=== PATIENT | male | born 1980 | race Caucasian/White ===

== ENCOUNTER 2024-06-26 13:26 | Outpatient (AMB) | payer OTHER, SELFPAY ==
--- NOTE | 2024-06-26 13:38 | A.OFFPC_ITS ---
Vital Signs 06/26/24 13:45 Height 6 ft 1 in Weight 132 lb 6 oz BMI 17.5 BP 121/64 Blood Pressure Location Rt brachial Position Sitting Respiration 16 Pulse 70 Pulse Source Pulse Oximeter Temp 98.2 F Temp Source Oral Pulse Oximetry (%) 99 Oxygen Delivery Method Room Air Intake Visit Reasons: est care Intake Note: patient here for new patient visit Vice President Biostatistics Required: No Allergies No Known Allergies [No Known Allergies*] Allergy (Verified 06/26/24 13:41) Tobacco use date assessed: 06/26/24 Dental Screening Dental Screen Date: 06/26/24 Did you have a dental visit in the last 12 months?: No Did you have a dental problem in the last 6 months where you did not have access to dental care?: No Was dental information given to patient?: Patient has dentist HPI HPI Comments History of Present Illness Details 43-year-old male presents to establish c are. Prior PCP? - [facility] Last office visit/CPE/labs - About 5 years Acute issue(s) - Trouble maintaining sleep. Ongoing on and off x 10 years. Sleep 1-3 hours nightly. - He notes chronic skin sensitivity with intermittent itching to his right arm, back, abdomen, and lower extremities. - Intermittent lower back tightness and discomfort which may interferes with his sleep and attributes that to scoliosis - intermittent anxiety and depressive sy mptoms. He was on psychotropic medications until 3-4 years ago. Never been followed by a psychiatrist. No history of psychotherapy. Declines psychotherapy at this time. Past Medical History - Anxiety, depression, scoliosis Surgical History - None Family History - None Social History - Nonsmoker. Vape cannabis occasionally. Does not drink alcohol. Smokes cannabis daily. - Has been making healthy dietary choice s. Does not exercise. Has trouble staying asleep, ongoing on and off for the past 10 years; he sleeps an average of 1-3 hours nightly. Drinks an average of 1 coffee daily. Health maintenance - Last eye exam was about 4-5 years ago. Referred to Ophthalmology. - Last dental visit was over in the the late to early 1999; encouraged to schedule an appointment with his dentist for routine dental care. - Unsure of last tetanus vaccine but wit hin 10 years. Will review records and update as needed. - Has not been vaccinated for the flu ; flu vaccine administered during his visit. [facility] Medical History (Updated 06/26/24 @ 14:25 by Matt Choudhury CNP) Scoliosis Depression Anxiety Family History (Updated 06/26/24 @ 13:44 by Roro Mckeon) Father Alcohol abuse Paternal Grandfather Alcohol abuse Maternal Grandfather Alcohol abuse Social History (Updated 06/26/24 @ 13:49 by Roro Mckeon) Housing: House Patient Tobacco Use Status: Never used Tobacco e-Cigarette/Vaping Use: Currently Using Second Hand Smoke Exposure: No Substance Use Type: Marijuana service: No Current occupational status: unemployed Current occupational exposures/hazards: No Cognitive needs: No Hearing needs: No Vision needs: No Questionnaire PHQ-9 Over the last 2 weeks, how often have you been bothered by any of the following problems? 1. Little interest or pleasure in doing things: several days 2. Feeling down, depressed, or hopeless: several days 3. Trouble falling or staying asleep, or sleeping too much: nearly every day 4. Feeling tired or having little energy: several days 5. Poor appetite or overeating: several days 6. Feeling bad about yourself - or that you are a failure or have let yourself or your family down: several days 7. Trouble concentrating on things, such as reading the newspaper or watching television: not at all 8. Moving or speaking so slowly that other people could have noticed. Or the opposite - being so fidgety or restless that you have been moving around a lot more than usual: not at all 9. Thoughts that you would be better off or of hurting yourself in some way: not at all Total score: 8 Depression Screening Interpretation: Positive Depression Screening Follow-up: Existing condition Depression Screening Done: Yes 92925 - PHQ-9 Billing: Yes Source: Developed by Drs. Aleksey Eugene, Dinorah Valenzuela, Raymundo Antony and colleagues, with an educational denisa from [employer]. Thrive Questionnaire Date Thrive assessed: 06/26/24 I am a: Patient What is your living situation today?: I have a steady place to live Within the past 12 months, did the food you bought not last and you didn't have the money to get more?: Never true Within the past 12 months, did you worry whether your food would run out before you got money to buy more?: Never true Do you have trouble paying for medicines?: No Do you have trouble getting transportation to medical appointments?: No Do you have trouble paying your heating and electricity bill?: No Do you have trouble taking care of your child, family member or friend?: No Do you have trouble with day-to-day activities such as bathing, preparing meals, shopping, managing finances, etc.?: No Are you currently unemployed and looking for a job?: Yes Are you interested in more education?: No Please select the resources that you would like help with: None Currently or been in a relationship where the following occur: No concerns reported THRIVE Score: 0 AUDIT C Alcohol Use Questionnaire (AUDIT-C) 1. How often do you have a drink containing alcohol?: Never Total Score: 0 RANDALL-7 AMB Questionnaire RANDALL-7 Date RANDALL - 7 assessed: 06/26/24 Feeling nervous, anxious, or on edge: 1 = Several days Not being able to stop or control worryin = Not at all Worrying too much about different things: 0 = Not at all Trouble relaxin = Several days Being so restless that it is hard to sit still: 1 = Several days Becoming easily annoyed or irritable: 1 = Several days Feeling afraid as if something awful might happen: 0 = Not at all Total RANDALL-7 score (0-4 normal; 5-9 mild; 10-14 moderate; 15-21 severe): 4 Source: Developed by Drs. Aleksey Eugene, Dinorah Valenzuela, Raymundo Antony and colleagues, with an educational denisa from [employer]. RANDALL-7 Assessment Billing RANDALL-7 Assessment Tool: RANDALL-7 Assessment 75037 Review of Systems Const Details: Denies chills, Denies fatigue, Denies fever(s), Denies headache(s) and Denies weakness HEENT Denies change in vision, Denies dizziness, Denies headache(s), Denies hearing loss, Denies nasal congestion, Denies sinus pain, Denies sinus pressure and Denies sore throat Card Denies chest pain, Denies lightheadedness, Denies dyspnea and Denies other (palpitations) Resp Denies cough, Denies dyspnea and Denies wheezing GI Denies abdominal pain, Denies melena, Denies hematochezia, Denies change in bowel habits, Denies dyspepsia and Denies nausea Denies hematuria and Denies dysuria Musc Denies abnormal gait, Denies myalgias, Denies arthralgias, Denies numbness and Denies tingling Skin/Breast Reports as per HPI Neuro Denies abnormal gait, Denies dizziness, Denies headache(s), Denies memory loss, Denies numbness, Denies Sensory deficit (Neuro), Denies tingling and Denies weakness Psych Denies anxiety, Denies depression and Denies memory loss Endo Denies cold intolerance, Denies fatigue, Denies heat intolerance, Denies polydipsia and Denies polyuria Flaco/Lymph Denies easy bleeding and Denies easy bruising Aller/Immun Denies wheezing Physical exam (Primary Care) Vital Signs: Last Vital Signs Temp 98.2 F 06/26/24 13:45 Pulse 70 06/26/24 13:45 Resp 16 06/26/24 13:45 BP 121/64 06/26/24 13:45 Pulse Ox 99 06/26/24 13:45 Oxygen Delivery Method Room Air 06/26/24 13:45 BMI result Body Mass Index 17.5 Tobacco/Smoking Status: Tobacco use Status Tobacco use date assessed 06/26/24 06/26/24 13:44 Patient Tobacco Use Status Never used Tobacco 06/26/24 13:49 e-Cigarette/Vaping Use Currently Using 06/26/24 13:49 PHQ-9: PHQ-9 Score PHQ-9: Total score 8 06/26/24 14:41 Depression Screening Interpretation: Positive Depression Screening Follow-up: Existing condition Thrive Assessment: Date of Thrive Assessment Date Thrive assessed 06/26/24 06/26/24 13:41 Currently or been in a relationship where the following occur: No concerns reported Const Other: General: no acute distress, well developed, alert and awake Nutritional Appearance: well nourished Orientation/consciousness: patient oriented x3 HENMT Head: Yes normocephalic and Yes atraumatic Ears: hearing grossly normal bilaterally and TM's normal bilaterally General nose exam: Normal external nose present and Normal nares present Mouth: Normal oral and palatal mucosa present and moist mucous membranes Teeth and gingiva: dentition normal Throat: Yes oropharynx normal Eyes Pupils: Equal, round and reactive pupils present and Pupil accommodation reflex normal EOM: EOMs intact bilaterally Neck Neck: Yes normal visual inspection, Yes no lymphadenopathy and Yes trachea midline Thyroid: Thyroid normal Carotids: no bruits Lymphatic: no lymphadenopathy noted Chest Chest palpation & inspection: normal inspection of the chest Resp Effort & Inspection: normal respiratory effort Auscultation: clear to auscultation bilaterally Cardio Rate: regular rate Rhythm: regular rhythm Heart sounds: S1 normal heart sound present, S2 normal heart sound present, no gallops, no murmurs and no rubs Bruits: no abdominal aortic bruits and no carotid bruits GI Palpation (GI): No Abdominal aortic bruit present, Soft to palpation, nontender, No hepatosplenomegaly present and No Rebound tenderness present Auscultation: normal bowel sounds General: Yes no CVA tenderness Back/Spine/Pelvis Back: no CVA tenderness Cervical Spine: cervical ROM normal and No Cervical spine tenderness Thoracic/Lumbar Spine: thoraco-lumbar ROM normal, No pain with thoraco-lumbar ROM, No thoracic spinal tenderness and No lumbar spinal tenderness Skin General: warm and dry. Normal skin color. Normal skin turgor Lesions: no lesions Rashes: Red, raised, skin irritation to the right arm, trunk, and, lower extremities Trauma: no lacerations or abrasions Wounds: no wounds Nails: normal Neuro General: patient oriented x3, gait normal and CN's II-XI intact bilaterally Cranial nerves: Yes Equal, round and reactive pupils present Cognition (Neuro): normal cognition Gait exam (Neuro): Normal gait present Motor exam (neuro): 5/5 motor strength present throughout Sensory Exam: No Sensory deficit (Neuro) Deep tendon reflexes (DTR's): Right patellar reflex intensity grade: 2+ and Left patellar reflex intensity grade: 2+ Extrem General: Yes normal to inspection, No edema and No calf tenderness Psych Appearance: grossly normal Affect: normal affect Attitude: cooperative Thought process: Normal thought process present Office Procedures Flu Questionnaire Does the patient have a severe egg allergy?: No Does the patient have severe life threatening allergies?: No Does the patient have a fever or illness today?: No Has the patient ever had Guillain-[place] Syndrome?: No Has the patient ever had any past reaction to a flu shot?: No Immunizations Fluarix Triv [id number] (PF) 45 mcg (15 mcg x 3)/0.5 mL IM syringe Performing Provider: Matt Choudhury CNP Performing Location: [facility] [place] [facility] Administered by: Aileen Richards RN on 06/26/24 14:40 Dose Route Admin Location Dispensed Lot Number Expiration Date [facility] Banking Pin Adjuster 0.5 mL IM Left Deltoid 0.5 mL [id number] 12/16/24 [id number] VIS Given Date VIS Provided VIS Publication Date 06/26/24 Single Vaccine 21 Eligibility Eligibility Date Funding Source Not [facility] Eligible 06/26/24 Private Coding Level of Care Code New Pt Level 4 (94791) New Pt Prev Care 40-64y(01563) Diagnoses Normal physical examination, routine Z00.00 Eye exam, routine Z01.00 Dermatitis L30.9 Anxiety F41.9 Depression F32.A Sleep disturbances G47.9 Laboratory tests ordered as part of a complete physical exam (CPE) Z00.00 Discomfort of back M54.9 Additional Codes RANDALL-7 Assessment Billing - RANDALL-7 Assessment Tool: RANDALL-7 Assessment 89359 ([id number]) PHQ-9 - 63908 - PHQ-9 Billing: Yes ([id number]) Assessment & Plan Assessment & Plan (1) Normal physical examination, routine: Code(s): Z00.00 - Encounter for general adult medical examination without abnormal findings Category: Medical Plan: No significant functional limitations noted. (2) Eye exam, routine: Code(s): Z01.00 - Encounter for examination of eyes and vision without abnormal findings Category: Medical Plan: His last eye exam was 4-5 years ago. Referred to Ophthalmology. (3) Dermatitis: Code(s): L30.9 - Dermatitis, unspecified Category: Medical Plan: Chronic skin sensitivity with intermittent itching to his right arm, back, abdomen, and lower extremities.Red, raised, skin irritation to the right arm, trunk, and, lower extremities. Betamethasone cream as prescribed. Encouraged to apply moisturizing lotion to dry skin. Follow-up as needed. Verbalized understanding and agreed with the plan. (4) Anxiety: Code(s): F41.9 - Anxiety disorder, unspecified Category: Medical Plan: Chronic anxiety and depressive symptoms. He stopped taking psychotropic medication 3-4 years ago. Declines psychotherapy referral. Will start fluoxetine 20 mg daily and hydroxyzine 25 mg 3 times daily; advised to take as prescribed. May take hydroxyzine 25 mg during the day and 25 mg at night to target sleep disturbance. Routine exercise encouraged. Follow-up in 6 weeks or sooner with symptoms or concerns. Verbalized understanding and agreed with treatment plan. (5) Depression: Code(s): F32.A - Depression, unspecified Category: Medical Plan: Plan as above. (6) Sleep disturbances: Code(s): G47.9 - Sleep disorder, unspecified Category: Medical Plan: Difficulty maintaining sleep, on and off, for the past 10 years. Instructed on sleep hygiene. Encouraged to limit caffeine intake. Hydroxyzine as prescribed. May take 25 mg during the day and 50 mg at night to target sleep. Routine exercise encouraged. Follow-up in 6 weeks. Verbalized understanding and agreed with the plan. (7) Laboratory tests ordered as part of a complete physical exam (CPE): Code(s): Z00.00 - Encounter for general adult medical examination without abnormal findings Category: Medical Plan: Fasting labs ordered as part of a complete physical exam. Advised to fast for at least 10 hours before getting labs drawn. May drink water Verbalized understanding and agreed with treatment plan. (8) Discomfort of back: Code(s): M54.9 - Dorsalgia, unspecified Category: Medical Plan: Intermittent low back discomfort disrupted sleep. Scoliosis may be a contributing factor. Massage, stretching, Warm/cool compresses encouraged. May take Tylenol ibuprofen for pain or discomfort. Follow-up as needed. Verbalized understanding and agreed with treatment plan. Orders: Orders Complete Blood Count Auto Diff Today Z00.00 - Encounter for general adult medical examination without abnormal findings Comprehensive [place]. Panel Fast Today Z00.00 - Encounter for general adult medical examination without abnormal findings TSH reflex Free T4 Today Z00.00 - Encounter for general adult medical examination without abnormal findings UA CC w/rflx Micro + Cult Today Z00.00 - Encounter for general adult medical examination without abnormal findings Influenza [id number] Immunization Today Z23 - Encounter for immunization Lipid Panel Today Z00.00 - Encounter for general adult medical examination without abnormal findings Microalbumin, Random (w Creat) Today Z00.00 - Encounter for general adult medical examination without abnormal findings PSA, Ultra Sensitive Today Z00.00 - Encounter for general adult medical examination without abnormal findings Referrals Ophthalmology Referral Z01.00 - Encounter for examination of eyes and vision without abnormal findings Medications: New betamethasone valerate 0.1% 1 appl topical BID PRN 45 grams 1RF skin irritation fluoxetine 20 mg PO DAILY 30 tabs 3RF 30 days hydroxyzine HCl 25 mg PO TID PRN 90 tabs 3RF anxiety
[2024-06-26 13:45] VITALS: BP 121/64; PULSE 70; RESP 16; TEMP 36.8; O2SAT 99; BMI 17.5
== END 2024-06-26 14:24 | disposition home or self-care (01) ==
PROVIDERS: PCP Nurse Practitioner Family; Visit Provider Nurse Practitioner Family
DX: Z00.00 Encounter for general adult medical examination without abnormal findings (principal); L30.9 Dermatitis, unspecified; F41.9 Anxiety disorder, unspecified; F32.A Depression, unspecified; G47.9 Sleep disorder, unspecified; M54.9 Dorsalgia, unspecified; Z23 Encounter for immunization

== ENCOUNTER → 2024-06-26 13:26 | Outpatient (BNVA) | payer OTHER, SELFPAY | PROVIDERS: PCP Nurse Practitioner Family; Visit Provider Nurse Practitioner Family | DX: Z00.00 Encounter for general adult medical examination without abnormal findings (principal); L30.9 Dermatitis, unspecified; F41.9 Anxiety disorder, unspecified; F32.A Depression, unspecified; G47.9 Sleep disorder, unspecified; M54.9 Dorsalgia, unspecified; Z23 Encounter for immunization | CPT/HCPCS: 90471; 90656; 96127; 99202; 99386 ==